=== PATIENT | female | born 1980 | race Caucasian/White ===

== ENCOUNTER 2016-12-03 19:30 | Emergency (ER) | payer MEDICAID, OTHER ==
[~2016-12-03] VITALS: Ht 167.6 cm; Wt 65.8 kg
--- NOTE | 2016-12-03 21:41 | NUR ---
PT WALKED INTO ER C/O FEVER, SORETHROAT,BODY ACHES.SINCE THIS AM. PT IS ALERT, ORIENT X 4, NO RESP DISTRESS NOTED OR REPORTED UPON ASSESSMENT... MD AT BEDSIDE..
--- NOTE | 2016-12-03 21:42 | NUR ---
Patient discharged to home in stable conditon. Written and verbal after care instructions given. Patient verbalizes understanding of instructions. PT provided phone number for call back ... pt walked out of er unassisted with belongings at side...
== END 2016-12-03 21:45 | disposition home or self-care (01) ==
LOC: ER 19:33
DX: J02.9 Acute pharyngitis, unspecified (principal); H92.01 Otalgia, right ear; F17.200 Nicotine dependence, unspecified, uncomplicated; Z88.2 Allergy status to sulfonamides
CPT/HCPCS: 36415; 86403; 87070; A4663